=== PATIENT | female | born 1975 | race Caucasian/White ===

== ENCOUNTER → 2019-11-26 | Outpatient (CLI) | payer OTHER ==
[~2019-11-26] MED LIST: XOLAIR150 MG SUBQ; ZANTAC 150MG T150 MG PO; ZYRTEC10 MG PO
== END ==
LOC: CAT 13:08
DX: Z13.6 Encounter for screening for cardiovascular disorders (principal); E78.00 Pure hypercholesterolemia, unspecified; I25.10 Atherosclerotic heart disease of native coronary artery without angina pectoris